=== PATIENT | female | born 1990 | race Hispanic/Latino ===

== ENCOUNTER 2018-03-12 10:48 | Emergency (ER) | payer MEDICAID ==
[~2018-03-12 10:48] MED LIST: FERR-82 PO; PREN1TAB89 PO
[2018-03-12 11:21] LABS: BASOPHILS % (AUTO) 0.3 % (0.0-5.0); EOSINOPHILS % (AUTO) 0.7 % (0.0-8.0); HEMATOCRIT 37.2 % (36-48); MEAN CORPUSCULAR HEMOGLOBIN 27.6 pg (27.0-33.0); MEAN CORPUSCULAR HGB CONC 34.3 g/dL (32.0-36.0); MEAN CORPUSCULAR VOLUME 80.6 fL (79-99); PLATELET COUNT (AUTO) 118 K/uL (130-400); RED BLOOD CELL COUNT(AUTO) 4.62 MIL/uL (4.00-5.50); RED CELL DISTRIBUTION WIDTH 15.6 % (11.0-15.5); WHITE BLOOD COUNT (AUTO) 7.4 K/uL (4.8-10.8)
[2018-03-12] MEDS ORDERED: SODIUM CHLORIDE 0.9% 1000ML 1,000 ML IV ONE (11:22)
[2018-03-12] MEDS ORDERED: ONDANSETRON HCL 4 MG/2 ML VIAL ONE (11:22)
[2018-03-12 11:29] LABS: CREATININE 0.4 mg/dL (0.5-1.5); POTASSIUM 3.8 mmol/L (3.5-5.1)
[2018-03-12 11:33] LABS: ALBUMIN 3.2 g/dL (3.5-5.0); BILIRUBIN,DIRECT 0.1 mg/dL (0.0-0.3); BILIRUBIN,TOTAL 0.5 mg/dL (0.2-1.0); TOTAL PROTEIN, SERUM 7.2 g/dL (6.0-8.3)
[2018-03-12 11:34] LABS: APPEARANCE,URINE Cloudy (CLEAR); BILIRUBIN,URINE Negative (NEGATIVE); COLOR,URINE Yellow (YELLOW); GLUCOSE, URINE (UA) Negative (NEGATIVE); KETONES,URINE Trace mg/dL (NEGATIVE); LEUKOCYTE ESTERASE ,URINE Small (NEGATIVE); NITRATE,URINE Negative (NEGATIVE); OCCULT BLOOD,URINE Negative (NEGATIVE); PROTEIN,URINE Negative (NEGATIVE)
[2018-03-12 11:55] LABS: BACTERIA,URINE Moderate /HPF (None Seen); RBC,URINE 0-1 /HPF (0-1); SQUAMOUS EPITHELIAL CELL,UR 30-50 /HPF (0-2)
== END 2018-03-12 13:19 | disposition home or self-care (01) ==
LOC: EDH 10:48
DX: O99.612 Diseases of the digestive system complicating pregnancy, second trimester (principal); O23.41 Unspecified infection of urinary tract in pregnancy, first trimester; K52.9 Noninfective gastroenteritis and colitis, unspecified; Z3A.20 20 weeks gestation of pregnancy
CPT/HCPCS: 36415; 80048; 80076; 81001; 82150; 83690; 85025; 87088; 87804 ×2; 96361; 96374; 99284; J2405; J7030

== ENCOUNTER 2018-05-01 09:10 | Emergency (ER) | payer MEDICAID ==
[2018-05-01] MEDS ORDERED: ONDANSETRON HCL 4 MG/2 ML VIAL ONE (09:46)
[2018-05-01] MEDS ORDERED: SODIUM CHLORIDE 0.9% 1000ML 1,000 ML IV ONE ×2 (09:47→11:04)
[2018-05-01 09:52] LABS: BASOPHILS % (AUTO) 0.2 % (0.0-5.0); HEMATOCRIT 33.2 % (36-48); LYMPHOCYTES % (AUTO) 6.9 % (21.0-51.0); MEAN CORPUSCULAR HEMOGLOBIN 26.7 pg (27.0-33.0); MEAN CORPUSCULAR HGB CONC 33.6 g/dL (32.0-36.0); MEAN CORPUSCULAR VOLUME 79.4 fL (79-99); MONOCYTES % (AUTO) 6.2 % (3.0-13.0); NEUTROPHILS % (AUTO) 85.7 % (40.0-77.0); PLATELET COUNT (AUTO) 125 K/uL (130-400); RED BLOOD CELL COUNT(AUTO) 4.18 MIL/uL (4.00-5.50); RED CELL DISTRIBUTION WIDTH 14.4 % (11.0-15.5); WHITE BLOOD COUNT (AUTO) 8.3 K/uL (4.8-10.8)
[2018-05-01 10:01] LABS: CREATININE 0.5 mg/dL (0.5-1.5); POTASSIUM 3.5 mmol/L (3.5-5.1)
[2018-05-01 10:05] LABS: ALBUMIN 2.8 g/dL (3.5-5.0); BILIRUBIN,DIRECT 0.1 mg/dL (0.0-0.3); BILIRUBIN,TOTAL 0.6 mg/dL (0.2-1.0)
[2018-05-01 10:26] LABS: APPEARANCE,URINE Cloudy (CLEAR); BILIRUBIN,URINE Negative (NEGATIVE); COLOR,URINE Dark Yellow (YELLOW); GLUCOSE, URINE (UA) Negative (NEGATIVE); KETONES,URINE >=160 mg/dL (NEGATIVE); LEUKOCYTE ESTERASE ,URINE Small (NEGATIVE); NITRATE,URINE Negative (NEGATIVE); OCCULT BLOOD,URINE Negative (NEGATIVE); PH,URINE 5.5 (5.0-8.0); PROTEIN,URINE Trace (NEGATIVE)
[2018-05-01 10:36] LABS: BACTERIA,URINE Few /HPF (None Seen); MUCUS,URINE Many LPF (None Seen); RBC,URINE None Seen /HPF (0-1); SQUAMOUS EPITHELIAL CELL,UR Moderate /HPF (0-2)
== END 2018-05-01 12:12 | disposition home or self-care (01) ==
LOC: EDH 09:10
DX: O21.9 Vomiting of pregnancy, unspecified (principal); E86.9 Volume depletion, unspecified; Z3A.26 26 weeks gestation of pregnancy
CPT/HCPCS: 36415; 80048; 80076; 81001; 85025; 87088; 96361; 96374; 99284; J2405; J7030 ×2

== ENCOUNTER 2018-05-05 15:04 | Observation (INO) | payer MEDICAID ==
[2018-05-05 15:49] LABS: BASOPHILS % (AUTO) 0.2 % (0.0-5.0); EOSINOPHILS % (AUTO) 0.9 % (0.0-8.0); HEMATOCRIT 31.6 % (36-48); LYMPHOCYTES % (AUTO) 14.5 % (21.0-51.0); MEAN CORPUSCULAR HEMOGLOBIN 25.4 pg (27.0-33.0); MEAN CORPUSCULAR HGB CONC 32.5 g/dL (32.0-36.0); MEAN CORPUSCULAR VOLUME 78.2 fL (79-99); MONOCYTES % (AUTO) 10.7 % (3.0-13.0); NEUTROPHILS % (AUTO) 73.7 % (40.0-77.0); PLATELET COUNT (AUTO) 134 K/uL (130-400); RED BLOOD CELL COUNT(AUTO) 4.04 MIL/uL (4.00-5.50); RED CELL DISTRIBUTION WIDTH 14.7 % (11.0-15.5); WHITE BLOOD COUNT (AUTO) 8.5 K/uL (4.8-10.8)
[2018-05-05 16:01] LABS: CREATININE 0.4 mg/dL (0.5-1.5); POTASSIUM 3.1 mmol/L (3.5-5.1)
[2018-05-05 16:05] LABS: ALBUMIN 2.4 g/dL (3.5-5.0); BILIRUBIN,TOTAL 0.6 mg/dL (0.2-1.0); TOTAL PROTEIN, SERUM 6.9 g/dL (6.0-8.3)
[2018-05-05] MEDS ORDERED: ACETAMINOPHEN 325 MG TAB ONE (16:18)
[2018-05-05 16:38] LABS: APPEARANCE,URINE Cloudy (CLEAR); BILIRUBIN,URINE Negative (NEGATIVE); COLOR,URINE Dark Yellow (YELLOW); GLUCOSE, URINE (UA) Negative (NEGATIVE); KETONES,URINE Trace mg/dL (NEGATIVE); LEUKOCYTE ESTERASE ,URINE Moderate (NEGATIVE); NITRATE,URINE Negative (NEGATIVE); OCCULT BLOOD,URINE Negative (NEGATIVE); PROTEIN,URINE Negative (NEGATIVE)
[2018-05-05 17:07] LABS: BACTERIA,URINE Few /HPF (None Seen); RBC,URINE None Seen /HPF (0-1); SQUAMOUS EPITHELIAL CELL,UR 30-50 /HPF (0-2)
[2018-05-05] MEDS ORDERED: LACTATED RINGERS 1000ML 1,000 ML IV ONE (19:01)
== END 2018-05-05 20:00 | disposition home or self-care (01) ==
LOC: EDH 15:04 → LDH 18:07
PROVIDERS: ADMIT Specialist; ATTEND Specialist
DX: O26.892 Other specified pregnancy related conditions, second trimester (principal); R19.7 Diarrhea, unspecified; Z3A.24 24 weeks gestation of pregnancy
CPT/HCPCS: 36415; 80053; 81001; 85025; 87804 ×2; 99285; G0378 ×2; J7120

== ENCOUNTER 2018-07-24 15:42 | Observation (INO) | payer MEDICAID ==
[~2018-07-24] VITALS: Ht 152.4 cm; Wt 63.0 kg
[2018-07-24 18:02] LABS: APPEARANCE,URINE Clear (CLEAR); BILIRUBIN,URINE Negative (NEGATIVE); COLOR,URINE Yellow (YELLOW); GLUCOSE, URINE (UA) Negative (NEGATIVE); KETONES,URINE Negative (NEGATIVE); LEUKOCYTE ESTERASE ,URINE Moderate (NEGATIVE); NITRATE,URINE Negative (NEGATIVE); OCCULT BLOOD,URINE Negative (NEGATIVE); PH,URINE 6.5 (5.0-8.0); PROTEIN,URINE Negative (NEGATIVE)
[2018-07-24 18:06] VITALS: BP 121/77
[2018-07-24 18:10] LABS: BACTERIA,URINE Few /HPF (None Seen); RBC,URINE None Seen /HPF (0-1)
== END 2018-07-24 18:29 | disposition home or self-care (01) ==
LOC: EDH 15:42 → LDH 15:54
PROVIDERS: ADMIT Specialist; ATTEND Specialist
DX: O26.893 Other specified pregnancy related conditions, third trimester (principal); R10.2 Pelvic and perineal pain; O23.43 Unspecified infection of urinary tract in pregnancy, third trimester; R35.0 Frequency of micturition; Z3A.35 35 weeks gestation of pregnancy
CPT/HCPCS: 81001; 82120; 99284; G0378 ×3

== ENCOUNTER 2018-08-16 21:31 | Observation (INO) | payer MEDICAID ==
[~2018-08-16] VITALS: Ht 152.4 cm; Wt 65.3 kg
[2018-08-16 21:59] LABS: BILIRUBIN,URINE Negative (NEGATIVE); COLOR,URINE Yellow (YELLOW); GLUCOSE, URINE (UA) Negative (NEGATIVE); KETONES,URINE Negative (NEGATIVE); LEUKOCYTE ESTERASE ,URINE Moderate (NEGATIVE); NITRATE,URINE Negative (NEGATIVE); OCCULT BLOOD,URINE Negative (NEGATIVE); PH,URINE 5.5 (5.0-8.0); PROTEIN,URINE Negative (NEGATIVE)
[2018-08-16 22:05] LABS: APPEARANCE,URINE HAZY (CLEAR)
[2018-08-16 22:09] LABS: BACTERIA,URINE Few /HPF (None Seen); RBC,URINE None Seen /HPF (0-1)
== END 2018-08-16 23:00 | disposition home or self-care (01) ==
LOC: EDH 21:31 → LDH 21:32
PROVIDERS: ADMIT Specialist; ATTEND Specialist
DX: O62.9 Abnormality of forces of labor, unspecified (principal); Z3A.39 39 weeks gestation of pregnancy
CPT/HCPCS: 81001; 99284; G0378

== ENCOUNTER 2020-02-18 18:23 | Emergency (ER) | payer MEDICAID ==
[2020-02-18] MEDS ORDERED: SODIUM CHLORIDE 0.9% 1000ML 1,000 ML IV ONE (18:37)
[2020-02-18] MEDS ORDERED: ONDANSETRON HCL 4 MG/2 ML VIAL ONE (18:37)
[2020-02-18 18:52] LABS: APPEARANCE,URINE Cloudy (CLEAR); BILIRUBIN,URINE Negative (NEGATIVE); COLOR,URINE Yellow (YELLOW); GLUCOSE, URINE (UA) Negative (NEGATIVE); KETONES,URINE >=160 mg/dL (NEGATIVE); LEUKOCYTE ESTERASE ,URINE Small (NEGATIVE); NITRATE,URINE Negative (NEGATIVE); OCCULT BLOOD,URINE Negative (NEGATIVE); PROTEIN,URINE Negative (NEGATIVE)
[2020-02-18 18:53] LABS: BASOPHILS % (AUTO) 0.1 % (0.0-5.0); EOSINOPHILS % (AUTO) 0.2 % (0.0-8.0); HEMATOCRIT 34.1 % (36-48); LYMPHOCYTES % (AUTO) 15.3 % (21.0-51.0); MEAN CORPUSCULAR HEMOGLOBIN 20.5 pg (27.0-33.0); MEAN CORPUSCULAR HGB CONC 29.9 g/dL (32.0-36.0); MEAN CORPUSCULAR VOLUME 68.5 fL (79-99); MONOCYTES % (AUTO) 4.9 % (3.0-13.0); NEUTROPHILS % (AUTO) 79.3 % (40.0-77.0); PLATELET COUNT (AUTO) 147 K/uL (130-400); RED BLOOD CELL COUNT(AUTO) 4.98 MIL/uL (4.00-5.50); RED CELL DISTRIBUTION WIDTH 18.6 % (11.0-15.5); WHITE BLOOD COUNT (AUTO) 8.9 K/uL (4.8-10.8)
[2020-02-18 19:11] LABS: CREATININE 0.5 mg/dL (0.5-1.5); POTASSIUM 3.1 mmol/L (3.5-5.1)
[2020-02-18] MEDS ORDERED: ACETAMINOPHEN 325 MG TAB ONE (19:11)
[2020-02-18 19:42] LABS: ALBUMIN 3.3 g/dL (3.5-5.0); BILIRUBIN,TOTAL 0.6 mg/dL (0.2-1.0); TOTAL PROTEIN, SERUM 7.9 g/dL (6.0-8.3)
[2020-02-18 19:46] LABS: BACTERIA,URINE Moderate /HPF (None Seen); MUCUS,URINE Moderate LPF (None Seen); SQUAMOUS EPITHELIAL CELL,UR Many /HPF (0-2)
== END 2020-02-18 20:29 | disposition home or self-care (01) ==
LOC: EDH 18:23
DX: O21.0 Mild hyperemesis gravidarum (principal); Z3A.16 16 weeks gestation of pregnancy
CPT/HCPCS: 36415; 80053; 81001; 84702; 85025; 87077; 87088; 87186; 96361; 96374; 99283; J2405; J7030

== ENCOUNTER 2020-04-13 00:59 | Observation (INO) | payer MEDICAID ==
[~2020-04-13] VITALS: Ht 152.4 cm; Wt 516.6 kg
[2020-04-13 01:45] VITALS: BP 119/81
[2020-04-13] MEDS: LACTATED RINGERS 1000ML IV PRN ×2 (01:45→02:30)
[2020-04-13 01:56] LABS: APPEARANCE,URINE Clear (CLEAR); BILIRUBIN,URINE Negative (NEGATIVE); COLOR,URINE Yellow (YELLOW); GLUCOSE, URINE (UA) Negative (NEGATIVE); KETONES,URINE >=80 mg/dL (NEGATIVE); LEUKOCYTE ESTERASE ,URINE Small (NEGATIVE); NITRATE,URINE Negative (NEGATIVE); OCCULT BLOOD,URINE Negative (NEGATIVE); PH,URINE 6.5 (5.0-8.0); PROTEIN,URINE Negative (NEGATIVE)
[2020-04-13 02:03] LABS: AMPHET/METH SCREEN,URINE NEGATIVE (NEGATIVE); BARBITURATE SCREEN, URINE NEGATIVE (NEGATIVE); BENZODIAZEPINES SCREEN,URINE NEGATIVE (NEGATIVE); CANNABINOID SCREEN,URINE NEGATIVE (NEGATIVE); COCAINE SCREEN,URINE NEGATIVE (NEGATIVE); OPIATE SCREEN,URINE NEGATIVE (NEGATIVE); PHENCYCLIDINE SCREEN,URINE NEGATIVE (NEGATIVE)
[2020-04-13 02:07] LABS: BACTERIA,URINE Rare /HPF (None Seen); RBC,URINE None Seen /HPF (0-1); SQUAMOUS EPITHELIAL CELL,UR Few /HPF (0-2)
[2020-04-13 02:08] LABS: MUCUS,URINE Few LPF (None Seen)
[2020-04-13] MEDS ORDERED: ONDANSETRON HCL 4 MG/2 ML VIAL IVP SCH (02:15)
[2020-04-13] MEDS ORDERED: ACETAMINOPHEN-CODEINE 300/30MG TAB PO ONE (02:15)
[2020-04-13] MEDS ORDERED: PREN1TAB80 PO (02:22)
[2020-04-13] MEDS ORDERED: ACETAMINOPHEN-CODEINE 300/30MG TAB ONE (02:26)
[2020-04-13] MEDS ORDERED: ONDANSETRON HCL 4 MG/2 ML VIAL ONE (02:26)
== END 2020-04-13 04:10 | disposition home or self-care (01) ==
LOC: EDH 00:59 → LDH 01:00
PROVIDERS: ADMIT Specialist; ATTEND Specialist
DX: O26.892 Other specified pregnancy related conditions, second trimester (principal); R10.12 Left upper quadrant pain; O21.2 Late vomiting of pregnancy; R51.9 Headache, unspecified; R25.1 Tremor, unspecified; R07.89 Other chest pain; Z3A.21 21 weeks gestation of pregnancy
CPT/HCPCS: 80305; 81001; 82948; 96360; 96361; 99284; G0378 ×3; J2405; J7120 ×2

== ENCOUNTER 2020-06-25 18:47 | Observation (INO) | payer MEDICAID ==
[~2020-06-25] VITALS: Ht 152.4 cm; Wt 67.6 kg
[~2020-06-25 18:47] MED LIST changes: +PREN1TAB80 PO
[2020-06-25 19:30] LABS: APPEARANCE,URINE Clear (CLEAR); BILIRUBIN,URINE Negative (NEGATIVE); COLOR,URINE Yellow (YELLOW); GLUCOSE, URINE (UA) Negative (NEGATIVE); KETONES,URINE Negative (NEGATIVE); LEUKOCYTE ESTERASE ,URINE Moderate (NEGATIVE); NITRATE,URINE Negative (NEGATIVE); OCCULT BLOOD,URINE Negative (NEGATIVE); PROTEIN,URINE Negative (NEGATIVE)
[2020-06-25 19:49] LABS: RBC,URINE 0-1 /HPF (0-1)
[2020-06-25 19:50] LABS: BACTERIA,URINE Rare /HPF (None Seen); MUCUS,URINE Rare LPF (None Seen); YEAST,URINE BUDDING Rare /HPF (None Seen)
[2020-06-25 19:51] LABS: SQUAMOUS EPITHELIAL CELL,UR Moderate /HPF (0-2)
[2020-06-25 19:53] LABS: AMPHET/METH SCREEN,URINE NEGATIVE (NEGATIVE); BARBITURATE SCREEN, URINE NEGATIVE (NEGATIVE); BENZODIAZEPINES SCREEN,URINE NEGATIVE (NEGATIVE); CANNABINOID SCREEN,URINE NEGATIVE (NEGATIVE); COCAINE SCREEN,URINE NEGATIVE (NEGATIVE); OPIATE SCREEN,URINE NEGATIVE (NEGATIVE); PHENCYCLIDINE SCREEN,URINE NEGATIVE (NEGATIVE)
[2020-06-25 20:07] VITALS: BP 140/90
[2020-06-25] MEDS: LACTATED RINGERS 1000ML IV ONE (20:30)
[2020-06-25] MEDS: FLUCONAZOLE 100 MG TAB PO SCH (20:45)
== END 2020-06-25 22:10 | disposition home or self-care (01) ==
LOC: EDH 18:47 → LDH 18:48
PROVIDERS: ADMIT Specialist; ATTEND Specialist
DX: O26.893 Other specified pregnancy related conditions, third trimester (principal); R10.2 Pelvic and perineal pain; Z3A.34 34 weeks gestation of pregnancy
CPT/HCPCS: 59025; 80305; 81001; 82120; 87088; 96360; 99284; G0378 ×3; J7120

== ENCOUNTER 2020-07-20 05:13 | Inpatient (IN) | payer MEDICAID ==
[~2020-07-20] VITALS: Ht 152.4 cm; Wt 68.9 kg
[2020-07-20 05:30] VITALS: BP 129/81
[2020-07-20] MEDS ORDERED: LACTATED RINGERS 1000ML IV PRN (05:30)
[2020-07-20 05:53] LABS: APPEARANCE,URINE Turbid (CLEAR); BILIRUBIN,URINE Negative (NEGATIVE); COLOR,URINE Yellow (YELLOW); GLUCOSE, URINE (UA) Negative (NEGATIVE); KETONES,URINE Trace mg/dL (NEGATIVE); LEUKOCYTE ESTERASE ,URINE Large (NEGATIVE); NITRATE,URINE Negative (NEGATIVE); OCCULT BLOOD,URINE Large (NEGATIVE); PROTEIN,URINE POS 1+ mg/dL (NEGATIVE)
[2020-07-20 06:01] LABS: AMORPHOUS SEDIMENT,UR Few /LPF (None Seen); BACTERIA,URINE Moderate /HPF (None Seen); MUCUS,URINE Few LPF (None Seen); RBC,URINE 26-50 /HPF (0-1); SQUAMOUS EPITHELIAL CELL,UR Many /HPF (0-2); WBC,URINE 26-50 /HPF (0-1)
[2020-07-20 06:33] LABS: HEMATOCRIT 30.9 % (36-48); MEAN CORPUSCULAR HEMOGLOBIN 21.3 pg (27.0-33.0); MEAN CORPUSCULAR HGB CONC 30.1 g/dL (32.0-36.0); MEAN CORPUSCULAR VOLUME 70.7 fL (79-99); PLATELET COUNT (AUTO) 122 K/uL (130-400); RED BLOOD CELL COUNT(AUTO) 4.37 MIL/uL (4.00-5.50); RED CELL DISTRIBUTION WIDTH 16.7 % (11.0-15.5); WHITE BLOOD COUNT (AUTO) 8.9 K/uL (4.8-10.8)
[2020-07-20] MEDS ORDERED: LACTATED RINGERS 1000ML 1,000 ML IV PRN (07:30)
[2020-07-20] MEDS ORDERED: MEPERIDINE-PF 50 MG/ML SYG ONE (08:29)
[2020-07-20] MEDS ORDERED: NALOXONE HCL 0.4 MG/1 ML ML IV PRN (08:30)
[2020-07-20] MEDS ORDERED: EPHEDRINE SULFATE 50 MG/ML AMPULE IVP PRN (08:30)
[2020-07-20] MEDS ORDERED: PROMETHAZINE HCL 25 MG/ML 1ML AMPULE IM PRN (08:30)
[2020-07-20] MEDS ORDERED: ROPIVACAINE 0.2% 100ML VIAL 100 ML EP SCH (08:30)
[2020-07-20] MEDS ORDERED: LACTATED RINGERS 500 ML 500 ML IV PRN (08:30)
[2020-07-20] MEDS ORDERED: MEPERIDINE-PF 50 MG/ML SYG IVP PRN (08:30)
[2020-07-20] MEDS ORDERED: LIDOCAINE HCL 1% 20 ML VIAL ONE (09:29)
[2020-07-20] MEDS: OXYTOCIN-LR 20 UNITS/1000 ML 1,000 ML IV SCH ×2 (10:32→12:00)
[2020-07-20] MEDS ORDERED: LANOLIN 30GM OINTMENT TP PRN (10:45)
[2020-07-20] MEDS ORDERED: DIPH,PERTUSS(ACELL),TET VAC/PF 0.5 ML VIAL IM PRN (10:45)
[2020-07-20] MEDS ORDERED: WITCH HAZEL 1 PAD TP PRN (10:45)
[2020-07-20] MEDS ORDERED: ACETAMINOPHEN 325 MG TAB PO PRN (10:45)
[2020-07-20] MEDS ORDERED: BENZOCAINE/LANOLIN/ALOE VERA 60 ML AEROSOL TP PRN (10:45)
[2020-07-20] MEDS ORDERED: MEASLES/MUMPS/RUBELLA VACCINE, LIVE 0.5 ML/VIAL SQ PRN (10:45)
[2020-07-20] MEDS ORDERED: ACETAMINOPHEN WITH CODEINE 1 TAB TAB PO PRN (10:45)
[2020-07-20] MEDS: IBUPROFEN 600 MG TABLET PO PRN ×2 (12:25→19:11)
[2020-07-20 14:18] VITALS: BP 118/69
[2020-07-20 16:13] VITALS: BP 123/78
[2020-07-20] MEDS ORDERED: PREN1TAB63 PO (17:44)
[2020-07-20 19:07] VITALS: BP 130/78
[2020-07-20] MEDS: DOCUSATE SODIUM 100 MG CAP PO SCH (20:17)
[2020-07-20 23:10] VITALS: BP 126/81
[2020-07-21 03:15] VITALS: BP 104/65
[2020-07-21] MEDS: IBUPROFEN 600 MG TABLET PO PRN (05:35)
[2020-07-21 06:26] VITALS: BP 116/68
[2020-07-21] MEDS: DOCUSATE SODIUM 100 MG CAP PO SCH (08:24)
[2020-07-21 11:22] VITALS: BP 114/74
[2020-07-23 06:11] LABS: HEPATITIS Bs ANTIGEN SCREEN P Negative (Negative)
== END 2020-07-21 13:40 | disposition home or self-care (01) | DRG 560 ==
LOC: EDH 05:13 → OBSVTOIN 05:14 → LDH 05:14 → WSH 14:15
PROVIDERS: ADMIT Specialist; ATTEND Specialist
PROC: 10E0XZZ Delivery of Products of Conception, External Approach (ICD-10-PCS; principal; 2020-07-20)
PROC: 10907ZC Drainage of Amniotic Fluid, Therapeutic from Products of Conception, Via Natural or Artificial Opening (ICD-10-PCS; 2020-07-20)
PROC: 3E0234Z Introduction of Serum, Toxoid and Vaccine into Muscle, Percutaneous Approach (ICD-10-PCS; 2020-07-20)
PROC: 3E0134Z Introduction of Serum, Toxoid and Vaccine into Subcutaneous Tissue, Percutaneous Approach (ICD-10-PCS; 2020-07-20)
DX: O80 Encounter for full-term uncomplicated delivery (principal); Z23 Encounter for immunization; Z3A.38 38 weeks gestation of pregnancy; Z37.0 Single live birth
CPT/HCPCS: 36415; 81001; 85027; 86592; 86701; 86850; 86900; 86901; 87088; 87340; 87390; A4351; A4606; G0378; J2175; J2590; J7120

== ENCOUNTER 2021-05-24 14:06 | Observation (INO) | payer MEDICAID ==
[~2021-05-24] VITALS: Ht 152.4 cm; Wt 68.5 kg
[~2021-05-24 14:06] MED LIST changes: +PREN1TAB63 PO
[2021-05-24 14:47] LABS: APPEARANCE,URINE Clear (CLEAR); BILIRUBIN,URINE Negative (NEGATIVE); COLOR,URINE Yellow (YELLOW); GLUCOSE, URINE (UA) Negative (NEGATIVE); KETONES,URINE 15 mg/dL (NEGATIVE); LEUKOCYTE ESTERASE ,URINE Large (NEGATIVE); NITRATE,URINE Negative (NEGATIVE); OCCULT BLOOD,URINE Negative (NEGATIVE); PH,URINE 5.5 (5.0-8.0); PROTEIN,URINE Negative (NEGATIVE)
[2021-05-24 15:01] LABS: BACTERIA,URINE Few /HPF (None Seen); MUCUS,URINE Rare LPF (None Seen); SQUAMOUS EPITHELIAL CELL,UR 0-2 /HPF (0-2)
[2021-05-24] MEDS ORDERED: LACTATED RINGERS 1000ML 1,000 ML IV ONE (15:19)
[2021-05-24] MEDS ORDERED: LACTATED RINGERS 1000ML 1,000 ML IV PRN (15:30)
[2021-05-24] MEDS ORDERED: FLUCONAZOLE 100 MG TAB PO SCH (15:30)
[2021-05-24] MEDS ORDERED: CEFTRIAXONE 1G VIAL IVP ONE (17:00)
[2021-05-24 18:32] VITALS: BP 120/82
== END 2021-05-24 18:12 | disposition home or self-care (01) ==
LOC: EDH 14:06 → LDH 14:07
PROVIDERS: ADMIT Specialist; ATTEND Specialist
DX: O26.893 Other specified pregnancy related conditions, third trimester (principal); R10.2 Pelvic and perineal pain; N89.8 Other specified noninflammatory disorders of vagina; Z3A.37 37 weeks gestation of pregnancy
CPT/HCPCS: 59025; 81001; 87088; 96374; G0378 ×4; G0379; J0696; J7120 ×2; 96360; 96372

== ENCOUNTER 2021-06-01 03:15 | Inpatient (IN) | payer MEDICAID ==
[~2021-06-01] VITALS: Ht 152.4 cm; Wt 68.9 kg
[2021-06-01] MEDS ORDERED: LACTATED RINGERS 1000ML 1,000 ML IV PRN (03:30)
[2021-06-01] MEDS ORDERED: AMPICILLIN 2GM+NS 100ML 100 ML IV ONE (03:35)
[2021-06-01] MEDS ORDERED: OXYTOCIN-LR 20 UNITS/1000 ML 1,000 ML IV ONE (03:35)
[2021-06-01] MEDS ORDERED: BENZOCAINE/LANOLIN/ALOE VERA 60 ML AEROSOL TP PRN (04:00)
[2021-06-01] MEDS ORDERED: LANOLIN 30GM OINTMENT TP PRN (04:00)
[2021-06-01] MEDS ORDERED: EPHEDRINE SULFATE 50 MG/ML AMPULE IVP PRN (04:00)
[2021-06-01] MEDS ORDERED: MEPERIDINE-PF 50 MG/ML SYG IVP PRN (04:00)
[2021-06-01] MEDS ORDERED: NALOXONE HCL 0.4 MG/1 ML ML IV PRN (04:00)
[2021-06-01] MEDS ORDERED: DIPH,PERTUSS(ACELL),TET VAC/PF 0.5 ML VIAL IM PRN (04:00)
[2021-06-01] MEDS ORDERED: MEASLES/MUMPS/RUBELLA VACCINE, LIVE 0.5 ML/VIAL SQ PRN (04:00)
[2021-06-01] MEDS ORDERED: WITCH HAZEL 1 PAD TP PRN (04:00)
[2021-06-01] MEDS ORDERED: MEPERIDINE-PF 50 MG/ML SYG ONE (04:00)
[2021-06-01] MEDS ORDERED: LACTATED RINGERS 500 ML 500 ML IV PRN (04:00)
[2021-06-01] MEDS ORDERED: ACETAMINOPHEN 325 MG TAB PO PRN (04:00)
[2021-06-01] MEDS ORDERED: ACETAMINOPHEN WITH CODEINE 1 TAB TAB PO PRN (04:00)
[2021-06-01] MEDS ORDERED: PROMETHAZINE HCL 25 MG/ML 1ML AMPULE IM PRN (04:00)
[2021-06-01] MEDS ORDERED: LIDOCAINE HCL 1% 20 ML VIAL ONE (04:01)
[2021-06-01 04:06] LABS: HEMATOCRIT 32.6 % (36-48); MEAN CORPUSCULAR HEMOGLOBIN 21.2 pg (27.0-33.0); MEAN CORPUSCULAR HGB CONC 29.8 g/dL (32.0-36.0); MEAN CORPUSCULAR VOLUME 71.2 fL (79-99); PLATELET COUNT (AUTO) 146 K/uL (130-400); RED BLOOD CELL COUNT(AUTO) 4.58 MIL/uL (4.00-5.50); RED CELL DISTRIBUTION WIDTH 17.2 % (11.0-15.5); WHITE BLOOD COUNT (AUTO) 14.7 K/uL (4.8-10.8)
[2021-06-01 04:27] LABS: APPEARANCE,URINE Cloudy (CLEAR); BILIRUBIN,URINE Negative (NEGATIVE); COLOR,URINE Yellow (YELLOW); GLUCOSE, URINE (UA) Negative (NEGATIVE); KETONES,URINE Negative (NEGATIVE); LEUKOCYTE ESTERASE ,URINE Moderate (NEGATIVE); NITRATE,URINE Negative (NEGATIVE); OCCULT BLOOD,URINE Negative (NEGATIVE); PROTEIN,URINE Negative (NEGATIVE)
[2021-06-01 04:33] LABS: AMPHET/METH SCREEN,URINE NEGATIVE (NEGATIVE); BARBITURATE SCREEN, URINE NEGATIVE (NEGATIVE); BENZODIAZEPINES SCREEN,URINE NEGATIVE (NEGATIVE); CANNABINOID SCREEN,URINE NEGATIVE (NEGATIVE); COCAINE SCREEN,URINE NEGATIVE (NEGATIVE); OPIATE SCREEN,URINE NEGATIVE (NEGATIVE); PHENCYCLIDINE SCREEN,URINE NEGATIVE (NEGATIVE)
[2021-06-01 04:46] LABS: BACTERIA,URINE Moderate /HPF (None Seen); RBC,URINE None Seen /HPF (0-1)
[2021-06-01 04:50] VITALS: BP 139/92
[2021-06-01] MEDS: OXYTOCIN-LR 20 UNITS/1000 ML 1,000 ML IV SCH ×2 (04:59→05:32)
[2021-06-01] MEDS ORDERED: PREN-196 PO (04:59)
[2021-06-01 07:15] VITALS: BP 118/80
[2021-06-01] MEDS: IBUPROFEN 600 MG TABLET PO PRN ×3 (07:15→21:57)
[2021-06-01] MEDS ORDERED: FLU VACC QS2021-22(6MOS UP)/PF 60 MCG/0.5 ML ML IM SCH (09:00)
[2021-06-01] MEDS ORDERED: FLU VACC QS2021-22(6MOS UP)/PF 60 MCG/0.5 ML ML IM ONE (09:00)
[2021-06-01] MEDS: DOCUSATE SODIUM 100 MG CAP PO SCH ×2 (09:00→21:03)
[2021-06-01 10:16] LABS: RAPID PLASMA REAGIN NONREACTIVE (NONREACTIVE)
[2021-06-01 11:33] VITALS: BP 126/79
[2021-06-01 15:51] VITALS: BP 113/82
[2021-06-01 19:14] VITALS: BP 108/77
[2021-06-01 23:34] VITALS: BP 119/71
[2021-06-02 03:42] VITALS: BP 119/71
[2021-06-02] MEDS: DOCUSATE SODIUM 100 MG CAP PO SCH (08:22)
[2021-06-02] MEDS: IBUPROFEN 600 MG TABLET PO PRN (08:22)
[2021-06-02 08:24] VITALS: BP 123/81
[2021-06-03 03:09] LABS: HEPATITIS Bs ANTIGEN SCREEN P Negative (Negative)
== END 2021-06-02 10:25 | disposition home or self-care (01) | DRG 560 ==
LOC: EDH 03:15 → LDH 03:16 → OBSVTOIN 03:28 → WSH 09:06
PROVIDERS: ADMIT Specialist; ATTEND Specialist
PROC: 10E0XZZ Delivery of Products of Conception, External Approach (ICD-10-PCS; principal; 2021-06-01)
PROC: 3E0234Z Introduction of Serum, Toxoid and Vaccine into Muscle, Percutaneous Approach (ICD-10-PCS; 2021-06-01)
PROC: 3E02340 Introduction of Influenza Vaccine into Muscle, Percutaneous Approach (ICD-10-PCS; 2021-06-01)
DX: O62.3 Precipitate labor (principal); O69.81X0 Labor and delivery complicated by cord around neck, without compression, not applicable or unspecified; Z37.0 Single live birth; Z3A.39 39 weeks gestation of pregnancy; Z23 Encounter for immunization
CPT/HCPCS: 36415; 80305; 81001; 85027; 86592; 86701; 86850; 86900; 86901; 87088; 87340; 87390; 90715; G0378; J0290; J2175; J2590; Q2035

== ENCOUNTER 2022-04-08 17:25 | Emergency (ER) | payer MEDICAID ==
[~2022-04-08] VITALS: Ht 152.4 cm; Wt 66.2 kg
[~2022-04-08 17:25] MED LIST changes: -FERR-82 PO; +PREN-196 PO; -PREN1TAB63 PO; -PREN1TAB80 PO; -PREN1TAB89 PO
[2022-04-08 17:30] VITALS: BP 121/73
[2022-04-08] MEDS ORDERED: 0.9%NACL 1000ML 1,000 ML IV ONE ×2 (18:00→18:09)
[2022-04-08 18:15] LABS: BASOPHILS % (AUTO) 0.1 % (0.0-5.0); EOSINOPHILS % (AUTO) 0.4 % (0.0-8.0); HEMATOCRIT 33.9 % (36-48); MEAN CORPUSCULAR HEMOGLOBIN 21.1 pg (27.0-33.0); MEAN CORPUSCULAR HGB CONC 30.7 g/dL (32.0-36.0); MEAN CORPUSCULAR VOLUME 68.6 fL (79-99); MONOCYTES % (AUTO) 6.7 % (3.0-13.0); NEUTROPHILS % (AUTO) 66.5 % (40.0-77.0); PLATELET COUNT (AUTO) 184 K/uL (130-400); RED BLOOD CELL COUNT(AUTO) 4.94 MIL/uL (4.00-5.50); RED CELL DISTRIBUTION WIDTH 18.2 % (11.0-15.5); WHITE BLOOD COUNT (AUTO) 6.9 K/uL (4.8-10.8)
[2022-04-08 18:22] LABS: APPEARANCE,URINE CLEAR (CLEAR); BILIRUBIN,URINE NEGATIVE (NEGATIVE); COLOR,URINE YELLOW (YELLOW); GLUCOSE, URINE (UA) NEGATIVE (NEGATIVE); KETONES,URINE NEGATIVE (NEGATIVE); LEUKOCYTE ESTERASE ,URINE NEGATIVE Leu/uL (NEGATIVE); NITRATE,URINE NEGATIVE (NEGATIVE); OCCULT BLOOD,URINE NEGATIVE (NEGATIVE); PROTEIN,URINE NEGATIVE (NEGATIVE)
[2022-04-08 18:23] LABS: CREATININE 0.5 mg/dL (0.5-1.5); POTASSIUM 3.5 mmol/L (3.5-5.1)
[2022-04-08 18:42] LABS: PLATELET MORPHOLOGY LARGE PLTS PRESENT
[2022-04-08 18:50] LABS: ALBUMIN 3.8 g/dL (3.5-5.0)
[2022-04-08] MEDS ORDERED: ACETAMINOPHEN 325 MG TAB ONE (18:57)
[2022-04-08] MEDS ORDERED: ACETAMINOPHEN 325 MG TAB PO ONE (19:00)
[2022-04-08 19:04] LABS: MUCUS,URINE FEW LPF (None Seen); RBC,URINE 0-1 /HPF (0-1); SQUAMOUS EPITHELIAL CELL,UR RARE /HPF (0-2); WBC,URINE 0-1 /HPF (0-1)
== END 2022-04-08 19:44 | disposition home or self-care (01) ==
LOC: EDH 17:25
DX: O26.891 Other specified pregnancy related conditions, first trimester (principal); E86.0 Dehydration; R51.9 Headache, unspecified; Z3A.09 9 weeks gestation of pregnancy
CPT/HCPCS: 99284; 96360; 76801; 80053; 84702; 83690; 85025; 81001; 81025; 36415; J7030

== ENCOUNTER 2022-04-30 13:47 | Emergency (ER) | payer MEDICAID ==
[~2022-04-30] VITALS: Ht 152.4 cm; Wt 65.8 kg
[2022-04-30] MEDS ORDERED: ONDANSETRON 4MG INJ IVP ONE (14:30)
[2022-04-30] MEDS ORDERED: 0.9%NACL 1000ML 1,000 ML IV SCH (14:30)
[2022-04-30] MEDS ORDERED: FAMOTIDINE 20MG VIAL IV ONE (14:30)
[2022-04-30 14:41] LABS: INFLUENZA TYPE A NEGATIVE FOR TYPE A (NEG); INFLUENZA TYPE B NEGATIVE FOR TYPE B (NEG)
[2022-04-30 15:57] VITALS: BP 127/76
== END 2022-04-30 15:57 | disposition home or self-care (01) ==
LOC: EDH 13:47
DX: B34.9 Viral infection, unspecified (principal); Z20.822 Contact with and (suspected) exposure to COVID-19; Z98.890 Other specified postprocedural states
CPT/HCPCS: 99284; 96374; 96361; 87635; 96375; 84702; 87880; 87804 ×2; 36415; C9803; J7030; J2405; S0028; J3490

== ENCOUNTER 2022-06-03 16:30 | Emergency (ER) | payer MEDICAID ==
[~2022-06-03] VITALS: Ht 152.4 cm; Wt 64.4 kg
[2022-06-03 19:49] LABS: BASOPHILS % (AUTO) 0.1 % (0.0-5.0); EOSINOPHILS % (AUTO) 0.1 % (0.0-8.0); HEMATOCRIT 33.7 % (36-48); MEAN CORPUSCULAR HEMOGLOBIN 22.3 pg (27.0-33.0); MEAN CORPUSCULAR HGB CONC 30.9 g/dL (32.0-36.0); MEAN CORPUSCULAR VOLUME 72.3 fL (79-99); NEUTROPHILS % (AUTO) 87.4 % (40.0-77.0); PLATELET COUNT (AUTO) 121 K/uL (130-400); RED BLOOD CELL COUNT(AUTO) 4.66 MIL/uL (4.00-5.50); RED CELL DISTRIBUTION WIDTH 16.5 % (11.0-15.5); WHITE BLOOD COUNT (AUTO) 7.9 K/uL (4.8-10.8)
[2022-06-03 19:58] LABS: CREATININE 0.4 mg/dL (0.5-1.5); POTASSIUM 3.1 mmol/L (3.5-5.1)
[2022-06-03 20:03] LABS: ALBUMIN 3.2 g/dL (3.5-5.0); TOTAL PROTEIN, SERUM 7.7 g/dL (6.0-8.3)
[2022-06-03] MEDS: ONDANSETRON 4MG INJ ONE (20:47)
[2022-06-03] MEDS: 0.9%NACL 1000ML 1,000 ML IV ONE (20:47)
[2022-06-03] MEDS: ACETAMINOPHEN 500 MG TABLET ONE (20:47)
[2022-06-03] MEDS: KCL 20 MEQ ERTAB PO ONE (22:19)
[2022-06-03] MEDS ORDERED: AMOX1TAB16 PO (22:39)
[2022-06-03 22:50] VITALS: BP 122/65
== END 2022-06-03 22:58 | disposition home or self-care (01) ==
LOC: EDH 16:30
DX: O99.892 Other specified diseases and conditions complicating childbirth (principal); E87.1 Hypo-osmolality and hyponatremia; E87.6 Hypokalemia; O26.892 Other specified pregnancy related conditions, second trimester; R05.9 Cough, unspecified; Z20.822 Contact with and (suspected) exposure to COVID-19; Z3A.17 17 weeks gestation of pregnancy
CPT/HCPCS: 99283; 96374; 96361; 87635; 80053; 85025; 87880; 87804 ×2; 36415; C9803; J7030; J2405

== ENCOUNTER 2022-12-18 06:27 | Day surgery (SDC) | payer MEDICAID ==
[2022-12-16 16:00] LABS: BASOPHILS % (AUTO) 0.2 % (0.0-5.0); HEMATOCRIT 30.6 % (36-48); LYMPHOCYTES % (AUTO) 24.6 % (21.0-51.0); MEAN CORPUSCULAR HEMOGLOBIN 20.7 pg (27.0-33.0); MEAN CORPUSCULAR HGB CONC 29.1 g/dL (32.0-36.0); MEAN CORPUSCULAR VOLUME 71.3 fL (79-99); MONOCYTES % (AUTO) 6.9 % (3.0-13.0); NEUTROPHILS % (AUTO) 67.3 % (40.0-77.0); PLATELET COUNT (AUTO) 195 K/uL (130-400); RED BLOOD CELL COUNT(AUTO) 4.29 MIL/uL (4.00-5.50); RED CELL DISTRIBUTION WIDTH 17.7 % (11.0-15.5); WHITE BLOOD COUNT (AUTO) 5.8 K/uL (4.8-10.8)
[2022-12-16 16:12] VITALS: BP 118/73
[~2022-12-18] VITALS: Ht 152.4 cm; Wt 62.6 kg
[2022-12-18] VITALS (16 sets, daily range): BP systolic 116–134; BP diastolic 70–89
[~2022-12-18 06:27] MED LIST changes: +CEFAZOLIN SODIUM 1 GM VIAL IVPB PRN; +LACTATED RINGERS 1000ML 1,000 ML IV SCH; -PREN-196 PO
[2022-12-18] MEDS ORDERED: FAMOTIDINE 20MG VIAL IV ONE (07:03)
[2022-12-18] MEDS ORDERED: PHENYLEPHRINE HCL 10 MG/ML 1ML VIAL IV ONE (07:09)
[2022-12-18] MEDS ORDERED: LIDOCAINE PF 100MG/5ML (2%) SYRINGE 5ML ONE (07:11)
[2022-12-18] MEDS ORDERED: MIDAZOLAM HCL 1 MG/ML 2ML VIAL ONE (07:11)
[2022-12-18] MEDS ORDERED: PROPOFOL 10 MG/ML 20ML VIAL IV ONE (07:12)
[2022-12-18] MEDS ORDERED: GLYCOPYRROLATE 1 MG/5 ML SYRINGE ONE (07:12)
[2022-12-18] MEDS ORDERED: ROCURONIUM 10MG/1ML SYR 10 MG/ML ML ONE (07:12)
[2022-12-18] MEDS ORDERED: FENTANYL CITRATE PF 50 MCG/1 ML 2ML VIAL ONE (07:12)
[2022-12-18] MEDS ORDERED: BUPIVACAINE/PF 0.25% 30ML VIAL IJ ONE (07:20)
[2022-12-18] MEDS ORDERED: CEFAZOLIN SODIUM 2 GM VIAL IVPB ONE (07:50)
[2022-12-18] MEDS ORDERED: ONDANSETRON 4MG INJ ONE (08:12)
[2022-12-18] MEDS ORDERED: NEOSTIGMINE 5MG/5ML SYR IV ONE (08:29)
== END 2022-12-18 10:05 | disposition home or self-care (01) ==
LOC: DAH 06:27
PROVIDERS: ATTEND Obstetrics & Gynecology
DX: Z30.2 Encounter for sterilization (principal); Z20.822 Contact with and (suspected) exposure to COVID-19; N81.2 Incomplete uterovaginal prolapse; D64.9 Anemia, unspecified
CPT/HCPCS: 84703; 85025; 86850; 86900; 86901; 87426; 36415; 58670; A6260; A4663; A4351; A4606; J7120; J3010; J0690 ×2; J3490 ×3; J2710; J2250; J2405; J2370; C1769 ×2; A4649; A4215 ×2; A4223; A4222; A4221; A4510; S0028; S0020; A4600; J2001; J2704

== ENCOUNTER 2024-12-04 17:12 | Emergency (ER) | payer SELFPAY ==
[~2024-12-04] VITALS: Ht 152.4 cm; Wt 68.9 kg
--- NOTE | 2024-12-04 17:32 | ERN ---
ED Note History of Present Illness Stated Complaint: FEVER,VOMITTING,EAR ACHE IN RT EAR, SORE THROAT Time Seen by MD: 17:15 Time Seen by Midlevel: 17:15 Dictation: The patient is a 34-year-old female with history of tubal ligation who presents to the emergency department with complaints of sore throat, body aches, fevers, right ear pain onset Wednesday. Patient reports she had some non bloody vomiting yesterday reports no vomiting today. Denies any abdominal pain or diarrhea. Allergies: Coded Allergies: No Known Allergies (Unverified Allergy, Unknown, 11/03/22) Home Meds No Active Prescriptions or Reported Meds Past Medical History Past Medical History: Other Additional Past Medical Hx: PRECLAMPSIA Surgical History: None Family History: Negative Social History: Negative : 6 Para: 4 Aborts: 1 RN Note Reviewed/Agreed w/PFSH: Yes Review of System Dictation Constitutional: Negative for fever,chills, and weight loss Eyes: Negative for injury, pain,redness, and discharge ENT: Negative for injury,pain or swelling positive for sore throat, positive for right ear pain Cardiovascular: Negative for chest pain, palpitations, and edema Respiratory: Negative for shortness of breath, cough, and wheezing, Abdomen/GI: Negative for abdominal pain, nausea, diarrhea, and constipation positive for vomiting Back: Negative for injury and pain : Negative for injury, bleeding and discharge MS/Extremity: Negative for injury and deformity Skin: Negative for rash, and discoloration Neuro: Negative for headache, weakness, numbness, tingling, and seizure Psych: Negative for suicide ideation, homicidal ideation, and hallucinations Initial Vital Sign VS Vital Signs Date Time Temp Pulse Resp B/P (MAP) Pulse Ox O2 Delivery O2 Flow Rate FiO2 12/04/24 17:45 100.2 115 18 125/103 98 Room Air 0 12/04/24 17:51 21 Physical Exam Dictation Vital Signs reviewed General Appearance: Alert, oriented x 3, no acute distress, well developed, nourished. Head and Face: non-traumatic. Eyes: PERRL, pink conjunctivas, eyelid no trauma, anterior chamber with arcus senilis. Ears: Pinnas intact and no signs of trauma or erythema ear canals clear and no discharge TM no erythema Nose: No discharge, no bleeding. Oropharynx: Mouth normal, tongue pink. pharynx clear,+ erythema, tonsils no exudates, no abscesses noted, mucous membrane moist Neck: Supple, non-tender, no thyromegaly, no masses, no JVD, no bruits Breast:Deferred Chest:No tenderness, no crepitus, no paradoxical movement, no retractions Lungs:Clear, well-ventilated, symmetric, no rales, no wheezing, no rhonchi, no stridor, good breath sounds bilaterally Heart: Regular rate, regular rhythm, no murmur, no gallops Vascular: no peripheral edema, Abdomen: Soft, positive bowel sounds, nondistended, no guarding, nontender, no rebound, no masses no hepatomegaly, no splenomegaly, no Cr's sign, no hernias. Rectal: Deferred Genital: Deferred Neurological: Normal speech, motor function intact, sensory function intact Musculoskeletal: Neck nontender, full range of motion, back nontender, full range of motion, Extremities: nontender, full range of motion Skin: Color pink, dry, no turgor, no rash, no lacerations, no abrasions, no contusions. Lymphatic: Deferred Results (Laboratory/Radiology) Laboratory/Radiology Laboratory Tests Test 12/04/24 17:47 12/04/24 18:06 12/04/24 18:32 Influenza Type A Antigen Negative For Type A Influenza Type B Antigen Negative For Type B SARS-CoV-2 Antigen (Rapid) PRESUMPTIVE NEGATIVE Group A Streptococcus Rapid negative (NEGATIVE) Urine Color YELLOW (YELLOW) Urine Appearance CLEAR (CLEAR) Urine pH 6.5 (5.0-8.0) Urine Specific [place] 1.019 (1.001-1.031) Urine Protein NEGATIVE mg/dL (NEGATIVE) Urine Glucose (UA) NEGATIVE mg/dL (NEGATIVE) Urine Ketones 5 mg/dL (NEGATIVE) H Urine Occult Blood NEGATIVE (NEGATIVE) Urine Nitrate NEGATIVE (NEGATIVE) Urine Bilirubin NEGATIVE mg/dL (NEGATIVE) Urine Urobilinogen >=8.0 mg/dL (0.2-1.0) H Urine Leukocyte Esterase 75 Be/uL (NEGATIVE) H Urine RBC 0-1 /HPF (0-1) Urine WBC 2-5 /HPF (0-1) H Urine Squamous Epithelial Cells FEW /HPF (0-2) Urine Bacteria None /HPF (None Seen) Urine HCG, Qualitative NEGATIVE (NEGATIVE) White Blood Count 9.4 K/uL (4.8-10.8) Red Blood Count 4.83 MIL/uL (4.00-5.50) Hemoglobin 10.5 g/dL (12.0-16.0) L Hematocrit 34.2 % (36-48) L Mean Corpuscular Volume 70.8 fL (79-99) L Mean Corpuscular Hemoglobin 21.7 pg (27.0-33.0) L Mean Corpuscular Hemoglobin Concent 30.7 g/dL (32.0-36.0) L Red Cell Distribution Width 17.2 % (11.0-15.5) H Platelet Count 171 K/uL (130-400) Mean Platelet Volume 12.1 fL (7.5-10.5) H Immature Granulocyte % (Auto) 0.4 % (0-1) Neutrophils (%) (Auto) 79.0 % (40.0-77.0) H Lymphocytes (%) (Auto) 12.3 % (21.0-51.0) L Monocytes (%) (Auto) 8.0 % (3.0-13.0) Eosinophils (%) (Auto) 0.1 % (0.0-8.0) Basophils (%) (Auto) 0.2 % (0.0-5.0) Neutrophils # (Auto) 7.5 K/uL (1.8-7.7) Lymphocytes # (Auto) 1.2 K/uL (1.0-4.8) Monocytes # (Auto) 0.8 K/uL (0.1-1.0) Eosinophils # (Auto) 0.01 K/uL (0.00-0.70) Basophils # (Auto) 0.02 K/uL (0.00-0.20) Absolute Immature Granulocyte (auto 0.04 K/uL (0-1) Nucleated Red Blood Cells 0.0 % (0.0-0.19) Red Blood Cell Morphology See comments Sodium Level 137 mmol/L (136-145) Potassium Level 3.5 mmol/L (3.5-5.1) Chloride Level 100 mmol/L (101-111) L Carbon Dioxide Level 26 mmol/L (21-32) Blood Urea Nitrogen 10 mg/dL (7-18) Creatinine 0.6 mg/dL (0.5-1.0) Glomerular Filtration Rate Calc 122 mL/min (>90) Random Glucose 98 mg/dL (70-105) Total Calcium 9.3 mg/dL (8.5-10.1) Labs Reviewed?: Yes ED Course ED Course Orders Procedure Category Date Status Time Covid19 (Sars Antigen LAB 12/04/24 Complete Rapid) 17:20 Influenza Type A & B, LAB 12/04/24 Complete Rapid 17:20 Rapid (Group A Strep) LAB 12/04/24 Complete 17:20 Cbc With Differential LAB 12/04/24 Complete 17:56 ,Urine Test LAB 12/04/24 Complete 17:56 Urinalysis Profile LAB 12/04/24 Complete 17:56 0.9%Nacl 1000ml (Ns PHA 12/04/24 Complete 1000ml) 18:00 Basic Metabolic Panel LAB 12/04/24 Complete 17:56 Acetaminophen 500mg PHA 12/04/24 Complete Tab (Tylenol 500mg T 18:00 Ondansetron 4mg Inj PHA 12/04/24 Complete (Zofran 4mg Inj) 18:00 Ketorolac PHA 12/04/24 Complete Tromethamine 30mg/Ml 18:00 Ceftriaxone 1g Vial PHA 12/04/24 Complete (Rocephine 1g Inj) 18:00 Blood Cult CHASE 12/04/24 In Process 17:56 Lactic Acid LAB 12/04/24 In Process 18:52 Culture Urine CHASE 12/04/24 Logged 20:04 Current Medications Medications (Trade) Dose Ordered Sig/Aisha Route PRN Reason Start Time Stop Time Status Last Admin Dose Admin Acetaminophen (TYLenol 500MG TAB) 1,000 mg ONCE ONCE PO 12/04/24 18:00 12/04/24 18:26 DC 12/04/24 18:59 Ceftriaxone Sodium (ROCEphine 1G INJ) 1 gm ONCE ONCE IVPB 12/04/24 18:00 12/04/24 18:26 DC 12/04/24 18:58 Ketorolac Tromethamine (toRADol) 30 mg ONCE ONCE IVP 12/04/24 18:00 12/04/24 18:26 DC 12/04/24 18:59 Ondansetron HCl (zoFRAN 4MG INJ) 4 mg ONCE ONCE IVP 12/04/24 18:00 12/04/24 18:26 DC 12/04/24 18:58 Sodium Chloride 1,000 ml @ 0 mls/hr ONCE ONCE IV 12/04/24 18:00 12/04/24 18:26 DC 12/04/24 18:59 Vital Signs Date Time Temp Pulse Resp B/P (MAP) Pulse Ox O2 Delivery O2 Flow Rate FiO2 12/04/24 19:58 98.4 90 16 122/80 98 Room Air* 0 21 12/04/24 18:59 100.9 12/04/24 18:51 100.9 102 16 129/86 98 Room Air* 0 21 12/04/24 17:51 100.2 115 18 125/103 98 Room Air* 0 21 12/04/24 17:45 100.2 115 18 125/103 98 Room Air 0 Medical Decision Making MDM The patient is a 34-year-old female with history of tubal ligation who presents to the emergency department with complaints of sore throat, body aches, fevers, right ear pain onset Wednesday. Patient reports she had some non bloody vomiting yesterday reports no vomiting today. Denies any abdominal pain or diarrhea. CBC showed no leukocytosis, mild normocytic anemia, normal platelets, chemistry showed mild hypochloremia, normal renal function, normal renal function, urinalysis positive for leukocyte esterase., serology negative. Patient in no acute distress, nontoxic appearance. No abscess noted to throat. Patient will be discharged on antibiotics and instructed to follow up with PCP. Patient with stable vital signs. Differential diagnosis: Upper respiratory infection, strep throat, pharyngitis Need for hospitalization: Patient does not meet criteria for hospitalization. There are no social concerns with this patient. DX & DISP Disposition: Discharge Departure Impression: Primary Impression: Acute pharyngitis Additional Impression: Fever Condition: Stable Scripts Amoxicillin (Amoxicillin) 500 Mg Tablet 1 TAB PO BID for 10 Days, #20 TAB 0 Refills Prov: BASSEM LEVY DIRECTOR AMBULATORY 12/04/24 Additional Instructions: Please follow up with your primary doctor in 1-2 days. Take your medications as prescribed and until finished. If symptoms worsen please return to ER. FOLLOW-UP WITH PRIMARY CARE PROVIDER IN 1 TO 2 DAYS. TAKE MEDICATIONS DIRECTED HERE IN THE EMERGENCY ROOM. OKAY TO CONTINUE HOME MEDICATIONS UNLESS OTHERWISE DISCUSSED DURING YOUR VISIT IN THE EMERGENCY ROOM TODAY. RETURN TO YOUR NEAREST EMERGENCY ROOM IF SYMPTOMS WORSEN OR IF THERE IS NO IMPROVEMENT. CALL 911 IF YOU NEED IMMEDIATE ASSISTANCE. TAKE TYLENOL OR MOTRIN [id number] NEEDED AND IF NO CONTRAINDICATIONS ARE PRESENT. INCREASE ORAL HYDRATION. A WOUND CULTURE OR URINE CULTURE WAS ORDERED HERE IN THE EMERGENCY ROOM DEPARTMENT PLEASE FOLLOW-UP WITH PRIMARY CARE PROVIDER AND ADVISE THEM TO GET REPEAT PORTS FROM OUR FACILITY. IF YOU HAD ANY MARCUS WRAP/SPLINTS THAT WERE APPLIED HERE, PLEASE DO NOT REMOVE THEM UNTIL YOU SEE YOUR PRIMARY CARE OR SPECIALTY. Referrals: SELF,REFERRAL (PCP) Time of Disposition: 20:11 I have reviewed the case, and I agree with, Diagnosis and Plan BASSEM LEVY [facility] Dec 04, 2024 17:31
[2024-12-04 18:17] LABS: RAPID GROUP A STREP negative (NEGATIVE)
[2024-12-04 18:23] LABS: COVID19 (SARS ANTIGEN RAPID) PRESUMPTIVE NEGATIVE (NEGATIVE)
[2024-12-04 18:24] LABS: INFLUENZA TYPE A Negative For Type A (NEGATIVE); INFLUENZA TYPE B Negative For Type B (NEGATIVE)
--- NOTE | 2024-12-04 18:44 | NUR ---
rec pt to room 3 at this time
[2024-12-04 18:56] LABS: BASOPHILS # (AUTO) 0.02 K/uL (0.00-0.20); BASOPHILS % (AUTO) 0.2 % (0.0-5.0); EOSINOPHILS # (AUTO) 0.01 K/uL (0.00-0.70); EOSINOPHILS % (AUTO) 0.1 % (0.0-8.0); HEMATOCRIT 34.2 % (36-48); IMMATURE GRANULOCYTE ABSOLUTE 0.04 K/uL (0-1); LYMPHOCYTES # (AUTO) 1.2 K/uL (1.0-4.8); LYMPHOCYTES % (AUTO) 12.3 % (21.0-51.0); MEAN CORPUSCULAR HEMOGLOBIN 21.7 pg (27.0-33.0); MEAN CORPUSCULAR HGB CONC 30.7 g/dL (32.0-36.0); MEAN CORPUSCULAR VOLUME 70.8 fL (79-99); MONOCYTES # (AUTO) 0.8 K/uL (0.1-1.0); NEUTROPHILS # (AUTO) 7.5 K/uL (1.8-7.7); PLATELET COUNT (AUTO) 171 K/uL (130-400); RED BLOOD CELL COUNT(AUTO) 4.83 MIL/uL (4.00-5.50); RED CELL DISTRIBUTION WIDTH 17.2 % (11.0-15.5); WHITE BLOOD COUNT (AUTO) 9.4 K/uL (4.8-10.8)
[2024-12-04] MEDS: ondanSETRON 4MG INJ IVP ONE (18:58)
[2024-12-04] MEDS: cefTRIAXone 1G VIAL IVPB ONE (18:58)
[2024-12-04] MEDS: 0.9%NACL 1000ML 1,000 ML IV ONE (18:59)
[2024-12-04] MEDS: ketOROlac 30MG VIAL (30MG/ML) IVP ONE (18:59)
[2024-12-04] MEDS: acetaMINOPHEN 500 MG TABLET PO ONE (18:59)
[2024-12-04 19:22] LABS: CREATININE 0.6 mg/dL (0.5-1.0); POTASSIUM 3.5 mmol/L (3.5-5.1)
[2024-12-04 19:47] LABS: APPEARANCE,URINE CLEAR (CLEAR); BILIRUBIN,URINE NEGATIVE (NEGATIVE); COLOR,URINE YELLOW (YELLOW); GLUCOSE, URINE (UA) NEGATIVE (NEGATIVE); KETONES,URINE 5 mg/dL (NEGATIVE); LEUKOCYTE ESTERASE ,URINE 75 Leu/uL (NEGATIVE); NITRATE,URINE NEGATIVE (NEGATIVE); OCCULT BLOOD,URINE NEGATIVE (NEGATIVE); PH,URINE 6.5 (5.0-8.0); PROTEIN,URINE NEGATIVE (NEGATIVE); UROBILINOGEN,URINE >=8.0 mg/dL (0.2-1.0)
[2024-12-04 19:50] LABS: HCG,QUALITATIVE URINE NEGATIVE (NEGATIVE)
[2024-12-04 19:57] VITALS: TEMP 98.5
[2024-12-04 19:58] VITALS: BP 122/80; PULSE 90; RESP 16; TEMP 98.5; O2SAT 98
[2024-12-04 20:03] LABS: ADD UA MICROSCOPIC YES
[2024-12-04 20:06] LABS: MUCUS,URINE RARE LPF (None Seen); RBC,URINE 0-1 /HPF (0-1); SQUAMOUS EPITHELIAL CELL,UR FEW /HPF (0-2)
[2024-12-04] MEDS ORDERED: AMOX500T2 PO (20:12)
== END 2024-12-04 20:27 | disposition home or self-care (01) ==
LOC: EDH 17:12
DX: J02.9 Acute pharyngitis, unspecified (principal); R50.9 Fever, unspecified; Z20.822 Contact with and (suspected) exposure to COVID-19
CPT/HCPCS: 99284; 96365; 96375; 87426; 80048; 85025; 87040 ×2; 87086; 87880; 87804 ×2; 83605; 81001; 81025; 36415; J1885; J7030; J0696; J2405